=== PATIENT | male | born 1980 | race African-American/Black ===

== ENCOUNTER → 2020-06-30 09:49 | Outpatient (BNVA) | payer SELFPAY | PROVIDERS: Visit Provider Internal Medicine | DX: Z02.79 Encounter for issue of other medical certificate (principal) ==

== ENCOUNTER 2022-09-14 10:42 | Emergency (ER) | payer OTHER, SELFPAY ==
[2022-09-14 10:52] VITALS: BP 144/81; PULSE 62; RESP 16; TEMP 36.6; O2SAT 98; BMI 22.9
--- OUTSIDE RECORDS SUMMARY | 2022-09-14 11:36 | XMS_ITS | Continuity of Care Document ---
Author Name Unknown Organization [facility] Address [address] [place] [address]- Care Team Providers Care Auto Technician Name Role Phone Not on Staff, PCP Primary Care Physician Unavail able Encounter [facility] Date(s): 01/20/20 - 03/04/20 [facility] [address], [place] [address] Attending Physician: Guillermo Mason MD Admitting Physician: Guillermo Mason MD Allergies, Adverse Reactions, Alerts Substance Reaction Severity Status NKA Active Social History Social History Type Response Smoking Status Former smoker, quit more than 30 days ago; Total pack years: 9; Started at age: 12; Stopped at age: 39; entered on: 02/03/20 Sex
--- OUTSIDE RECORDS SUMMARY | 2022-09-14 11:37 | XMS_ITS | Continuity of Care Document ---
Author Name Unknown Organization [facility] Address [address] [place] [address]- Care Team Providers Care Deburrer Strip Name Role Phone Wenceslao Garvey MD Primary Care Physician Encounter [facility] Date(s): 02/04/22 - 03/06/22 [facility] [address] [place] [id number] Attending Physician: Ciera Perry Admitting Physician: Ciera Perry Referring Physician: Ciera Perry Allergies, Adverse Reactions, Alerts No Known Allergies Social History Social History Type Response Smoking Status Former smoker, quit more than 30 days ago; Total pack years: 9; Started at age: 12; Stopped at age: 39; entered on: 02/03/20 Sex Patient Care team information Care Team Personnel Name: Wenceslao Garvey MD Position: S Resident Member Role: PCP Address: Address: [address] [place] [id number]- Care Team Related Persons Name: HARLEY PORTER Address: home [address] [place] [id number]
--- OUTSIDE RECORDS SUMMARY | 2022-09-14 11:37 | XMS_ITS | Continuity of Care Document ---
Author Name Unknown Organization [facility] Address [address] [place] [phone]- Care Team Providers Care Operations Intern Name Role Phone Wenceslao Garvey MD Primary Care Physician Encounter [facility] Date(s): 12/15/21 - 03/06/22 [facility] [address] [place] [id number] Attending Physician: Guillermo Mason MD Admitting Physician: Guillermo Mason MD Allergies, Adverse Reactions, Alerts No Known Allergies Social History Social History Type Response Smoking Status Former smoker, quit more than 30 days ago; Total pack years: 9; Started at age: 12; Stopped at age: 39; entered on: 02/03/20 Sex Patient Care team information Care Team Personnel Name: Wenceslao Garvey MD Position: S Resident Member Role: PCP Address: Address: [address] [place] [address]- Care Team Related Persons Name: HARLEY PORTER Address: home [address] [place] [id number]
--- OUTSIDE RECORDS SUMMARY | 2022-09-14 11:37 | XMS_ITS | Continuity of Care Document ---
Author Name Unknown Organization [facility] Address [address] [place] [address]- Care Team Providers Care Obiee Report Developer Name Role Phone Truong Arana MD Primary Care Physician [phone] Encounter [facility] Date(s): 06/07/20 - 07/07/20 [facility] [address] [place] [id number] Allergies, Adverse Reactions, Alerts Substance Reaction Severity Status NKA Active Social History Social History Type Response Smoking Status Former smoker, quit more than 30 days ago; Total pack years: 9; Started at age: 12; Stopped at age: 39; entered on: 02/03/20 Sex
--- OUTSIDE RECORDS SUMMARY | 2022-09-14 11:37 | XMS_ITS | Continuity of Care Document ---
Author Name Unknown Organization [facility] Address [address] [place] [address]- Care Team Providers Care Signals Collection Technician Name Role Phone Not on Staff, PCP Primary Care Physician Unavail able Encounter [facility] Date(s): 02/17/20 - 03/18/20 [facility] [address] [place], [place] [address] Allergies, Adverse Reactions, Alerts Substance Reaction Severity Status NKA Active Social History Social History Type Response Smoking Status Former smoker, quit more than 30 days ago; Total pack years: 9; Started at age: 12; Stopped at age: 39; entered on: 02/03/20 Sex
--- OUTSIDE RECORDS SUMMARY | 2022-09-14 11:37 | XMS_ITS | Continuity of Care Document ---
Author Name Unknown Organization [facility] Address [address] [place] [address]- Care Team Providers Care Associate Scientist Name Role Phone Not on Staff, PCP Primary Care Physician Unavail able Encounter [facility] Date(s): 02/03/20 - 03/04/20 [facility] [address] [place], [place] [address] Attending Physician: Ciera Perry Admitting Physician: Ciera Perry Referring Physician: Ciera Perry Allergies, Adverse Reactions, Alerts Substance Reaction Severity Status NKA Active Social History Social History Type Response Smoking Status Former smoker, quit more than 30 days ago; Total pack years: 9; Started at age: 12; Stopped at age: 39; entered on: 02/03/20 Sex
--- OUTSIDE RECORDS SUMMARY | 2022-09-14 11:37 | XMS_ITS | Continuity of Care Document ---
Author Name Unknown Organization [facility] ter Address [address] [place] [address]- Care Team Providers Care Anesthesiology Technologist Name Role Phone Not on Staff, PCP Primary Care Physician Unavail able Encounter [facility] Date(s): 02/10/19 - 02/10/[address] [address] [facility] Encounter Diagnosis Acute pain of right shoulder due to trauma(Final) - 02/10/19 Injury of right rotator cuff(Final) - 02/10/19 Discharge Disposition: A-D/C Home Attending Physician: Braulio Briscoe MD Admitting Physician: Braulio Briscoe MD Referring Physician: Not on Staff, Referring MD Allergies, Adverse Reactions, Alerts Substance Reaction Severity Status NKA Active Results Radiology Reports * Exam Date Time Procedure Performing Provider Status 02/10/19 9:29 AM Shoulder Min 2 Views Right Shmuel , Jenna; Auth (Verified) Notes: (Shoulder Min 2 Views Right) Reason For Exam: with Pain;Trauma RESULT: Shoulder Min 2 Views Right Shoulder Min 2 Views Right, 3 views Refer to EMR; Reason: Trauma; with Pain; Clinical Question(s): Fracture; Special Instructions: Thisis a protocol film and radiologist should call any findings to the Charge Nurse; Hx of Present Illness: pt states he fell yesterday and held out his right arm to break the fall pt c o right shoulder pain 6 10 pt states hes able to move right upper extremity but hurts did not take any meds for pain COMPARISON: None. FINDINGS: No fracture or dislocation. No arthritic change of the glenohumeral joint. Normal AC joint and portions of the clavicle included on the exam. No calcification of the rotator cuff. IMPRESSION: Normal. WSN: [id number] Dictated By: Papito Garay MD Dictated Date/Time: 02/10/19 9:45 am Reviewed By: Papito Garay MD Signed By: Papito Garay MD Signed Date/Time: 02/10/19 9:45 am Transcribed By: ELVIN Transcribed Date/Time: 02/10/19 9:45 am Vital Signs Most recent to oldest [Reference Range]: 1 Weight 89.5 kg (02/10/19 8:22 AM) Oxygen Saturation [94-100 %] 98 % (02/10/19 8:22 AM) Pulse Rate [55-90 bpm] 70 bpm (02/10/19 8:22 AM) Blood Pressure [90-138/55-84 mm Hg] 132/ 79mm Hg (02/10/19 8:22 AM) Respiratory Rate [16-30 br/min] 18 br/mi n (02/10/19 8:22 AM) Temperature [96.8-100.4 DegF] 97.6 DegF (02/10/19 8:22 AM) Mode of Delivery (Oxygen) Room air (02/10/19 8:22 AM) Blood pressure sites Arm, left (02/10/19 8:22 AM) Temperature Route Oral (02/10/19 8:22 AM) Dry Weight 89.5 kg (02/10/19 8:22 AM)
--- OUTSIDE RECORDS SUMMARY | 2022-09-14 11:37 | XMS_ITS | Continuity of Care Document ---
Author Name Unknown Organization [facility] ter Address [address] [place] [id number]- Care Team Providers Care Hostess Name Role Phone Not on Staff, PCP Primary Care Physician Unavail able [facility]counter [facility] Date(s): 09/07/19 - 09/07/[address] [address] [facility] Discharge Disposition: A-D/C Walkout Attending Physician: Not on Staff, Attending MD Admitting Physician: Not on Staff, Admitting MD Referring Physician: Not on Staff, Referring MD Allergies, Adverse Reactions, Alerts Substance Reaction Severity Status NKA Active Vital Signs Most recent to oldest [Reference Range]: 1 Height 186 cm (09/07/19 11:54 AM) Weight 88.5 kg (09/07/19 11:54 AM) Oxygen Saturation [94-100 %] 98 % (09/07/19 11:54 AM) Pulse Rate [55-90 bpm] 62 bpm (09/07/19 11:54 AM) Body Mass Index [18.5-24.99] 25.58 *H* (09/07/19 11:54 AM) Blood Pressure [90-138/55-84 mm Hg] 119/ 69mm Hg (09/07/19 11:54 AM) Respiratory Rate [16-30 br/min] 18 br/mi n (09/07/19 11:54 AM) Temperature [96.8-100.4 DegF] 98.6 DegF (09/07/19 11:54 AM) Mode of Delivery (Oxygen) Room air (09/07/19 11:54 AM) Blood pressure sites Arm, left (09/07/19 11:54 AM) Temperature Route Oral (09/07/19 11:54 AM) Dry Weight 88.5 kg (09/07/19 11:54 AM) Weight Obtained Via Patient/family state d (09/07/19 11:54 AM) Dry Weight Obtained Via Patient/family s tated (09/07/19 11:54 AM)
--- OUTSIDE RECORDS SUMMARY | 2022-09-14 11:37 | XMS_ITS | Continuity of Care Document ---
Author Name Unknown Organization [facility] Address [address] [place] [address]- Care Team Providers Care Data Virtualization Consultant Name Role Phone Truong Arana MD Primary Care Physician Encounter [facility] Date(s): 07/23/20 - 09/07/20 [facility] [address] [place], [place] [address] Attending Physician: Not on Staff, Attending MD Allergies, Adverse Reactions, Alerts Substance Reaction Severity Status NKA Active Social History Social History Type Response Smoking Status Former smoker, quit more than 30 days ago; Total pack years: 9; Started at age: 12; Stopped at age: 39; entered on: 02/03/20 Sex
--- NOTE | 2022-09-14 13:17 | ED.DENTAL ---
HPI - Dental/Oral General Chief complaint: Dental/Oral Stated complaint: tooth pain Time Seen by Provider: 09/14/22 12:21 Source: patient Mode of arrival: ambulatory Limitations: no limitations History of Present Illness HPI Narrative: Patient is a 42-year-old male presents emergency department for evaluation of dental pain. Reports that his right lower wisdom to has been infected for some time recently fractured further. He has a foul taste to his mouth, and his gums are red. Denies any you pain, neck pain, chest pain, shortness of breath, fevers, chills. He currently does not have a dental provider as he does not have insurance. Related Data Previous Rx's Medication Instructions Recorded amoxicillin 875 mg-potassium 1 tab PO BID #13 tabs 09/14/22 clavulanate 125 mg tablet Allergies Allergy/AdvReac Type Severity Reaction Status Date / Time No Known Allergies Allergy Verified 09/14/22 10:51 Review of Systems Review of Systems: Constitutional : No Fever, No Chills, No changes in PO intake, No difficulty speaking,? no recent dental procedure, no heat or cold intolerance while eating, no recent face trauma, ENT/Mouth : No swallowing difficulty, no change in voice, No jaw pain, No facial swelling, no drooling, no trismus, no bleeding, no throat swelling, no lacerations, no tongue swelling, gum swelling, Eyes: No Eye Pain, No periorbital Swelling Cardiovascular : No Chest Pain, No SOB Respiratory : No Cough, No Sputum, No Wheezing, No Smoke Exposure, No Dyspnea Gastrointestinal : No Nausea, No Vomiting, No Diarrhea Genitourinary : No Dysuria Musculoskeletal : No Myalgias Skin : No rash, no facial swelling or redness, Neuro : No Weakness, No Numbness, No Headache Yes all other systems are reviewed and are negative [facility] Past Medical History Attestation statement: The following information was validated with the patient. Source: old records reviewed Social History Social History Advance Directives: No Advance Directives Information Provided: Yes Physical Exam Vital Signs: Vital Signs: Last Vital Signs Temp 97.8 F 09/14/22 10:52 Pulse 62 09/14/22 10:52 Resp 16 09/14/22 10:52 BP 144/81 H 09/14/22 10:52 Pulse Ox 98 09/14/22 10:52 O2 Del Method Room Air 09/14/22 10:52 BMI result Body Mass Index 22.9 Appearance: Alert. Oriented X3. No acute distress. Head: Normal external exam. Normocephalic. Atraumatic. Eyes: PERRLA. EOMI. Conjunctiva and sclera normal. Eyelids normal. ENT: EAC normal. TM's Normal. Pharynx normal. Uvula midline. Moist mucous membranes.? ?No trismus noted.? No drooling noted.? No muffled voice noted. Dentition:? Patient with poor dentition throughout with multiple old fractured teeth with multiple dental caries.? Gingival within normal limits.? No fluctuance.? Neck: Normal inspection. Neck supple. FROM. No adenopathy. Thyroid Normal. No meningeal signs. No neck mass noted.? Trachea midline. CVS: Normal heart rate and rhythm. Heart sound normal. No murmurs noted. Pulses normal throughout. Respiratory: No respiratory distress. Painless inspiration. Breath sounds normal. No wheezes/rales/rhonchi noted. Chest nontender. ?No accessory muscle usage noted or decreased air movement noted. Back:? Full range of motion noted. Skin: Skin warm and dry.? Normal skin color.? Normal skin turgor. No rashes/lesions/lacerations noted. Extremities: Extremities exhibit normal range of motion.? Extremities nontender. Neuro: Oriented X 3.? No motor deficit.? No sensory deficit.? Reflexes normal. Medical Decision Making Medical Decision Making MDM Narrative: Patient is a 42-year-old male presenting to emergency department for evaluation of dental pain as per HPI. He is overall well-appearing, nontoxic, afebrile without tachycardia. Examination is concerning for dental infection, no evidence of dental abscess or peritonsillar abscess at this time. No salivary duct obstruction is noted. Patient with multiple caries and dental fracture present. Offered analgesics in the emergency department however he declines. Discussed plan of care for discharge prescription for Augmentin, patient received 1st dose while in the emergency department. Advised outpatient follow-up with dental provider provided information for local dental clinics in addition to obtaining Upfront Chromatography. Reviewed worrisome signs and symptoms that would warrant re-evaluation in the emergency department. All questions answered. Stable for discharge. Differential Diagnosis Differential Diagnoses: The differential diagnosis associated with the presentation includes ( As noted above) Prescription Management I considered prescription management with: Antibiotic Social Determinants Patient?s care significantly limited by Social Determinants of Health including: Other Social Determinant of Health ( lack of health insurance) Discharge Plan Discharge Clinical Impression: Fracture of tooth, Dental infection Patient Disposition: Home, Self-Care Instructions: Toothache (ED) Additional Instructions: You received the first dose of antibiotic while in the emergency department, I sent a prescription for additional dosages to your pharmacy. Please be sure that you complete the entire course of this antibiotic. You can take ibuprofen 200 mg, 3 tablets (600mg) every 6-8 hours as needed for pain, in addition to Tylenol 500 mg, 2 tablets (1,000mg) every 4-6 hours as needed for pain, but not to exceed 3 doses daily (3,000mg).? You have been provided with contact information for local dental offices/Clinics, please contact their office to arrange for follow-up in addition to obtaining health insurance. You may return back to emergency department any new or worsening symptoms or concerns. Prescriptions: New amoxicillin-pot clavulanate 875-125 mg tablet 1 tab PO BID Qty: 13 0RF Referrals: Physician,None [Primary Care Provider] -
[2022-09-14] MEDS: Amoxicillin/Potassium Clav 875 MG TABLET PO (13:30)
== END 2022-09-14 13:58 | disposition home or self-care (01) ==
PROVIDERS: Emergency Provider Student in an Organized Health Care Education/Training Program
DX: K08.539 Fractured dental restorative material, unspecified (principal); K04.7 Periapical abscess without sinus; K08.89 Other specified disorders of teeth and supporting structures
CPT/HCPCS: 99282; 99283

== ENCOUNTER 2022-10-13 15:44 | Emergency (ER) | payer OTHER, SELFPAY ==
[2022-10-13 16:03] VITALS: BP 122/79; PULSE 72; RESP 18; TEMP 36.2; O2SAT 100; BMI 23.4
--- NOTE | 2022-10-13 16:12 | ED.GENADULT ---
HPI - General Adult General Chief complaint: Dental/Oral Stated complaint: dental pain/headache Time Seen by Provider: 10/13/22 16:08 Source: patient Mode of arrival: ambulatory Limitations: no limitations History of Present Illness HPI narrative: [age] old male presents to ED for right upper molar pain due to prior cracked tooth in the past. Patient not been able to follow-up with dentist due to insurance [place] health issues. Patient denies any facial swelling, drooling, change in voice, chest pain, trouble swallowing, shortness of breath or any recent trauma to the head neck or face. Related Data Previous Rx's Medication Instructions Recorded amoxicillin 875 mg-potassium 1 tab PO BID #13 tabs 09/14/22 clavulanate 125 mg tablet amoxicillin 875 mg-potassium 1 tab PO Q12H 10 days #20 tabs 10/13/22 clavulanate 125 mg tablet naproxen 500 mg tablet 500 mg PO BID PRN pain 7 days #14 10/13/22 tabs Allergies Allergy/AdvReac Type Severity Reaction Status Date / Time No Known Allergies Allergy Verified 10/13/22 16:03 Review of Systems Review of Systems: Right-sided facial pain Yes all other systems are reviewed and are negative PMFSH Social History Social History Advance Directives: No Advance Directives Information Provided: Yes Physical Exam ED Vital Signs: Vital Signs - 24 hr 10/13/22 16:03 Temperature 97.2 F Pulse Rate 72 Respiratory Rate 18 Blood Pressure 122/79 Pulse Oximetry 100 Oxygen Delivery Method Room Air BMI result Body Mass Index 23.4 Const General: cooperative, healthy appearing, comfortable, no acute distress, well developed, alert, awake and Physically active; No acute distress Orientation/consciousness: oriented to person, oriented to place, oriented to time and patient oriented x3 HENMT Other: negative for any facial swelling Head: Yes normal to inspection, Yes No palpable skull fracture present, Yes normocephalic, Yes atraumatic and No abrasion Ears: hearing grossly normal bilaterally, external ears normal, TM's normal bilaterally, TM normal on the right, TM normal on the left, EAC's normal, mastoids normal and no periauricular adenopathy Teeth image: 1. tenderness on palpation. Negative for pus collection. Negative trismus 2. tenderness on palpation. Negative for pus collection. Negative trismus Throat: Yes posterior oropharynx normal, Yes tonsils normal and Yes uvula midline Eyes General: appearance normal, both eyes and all related structures Neck Neck: Yes normal visual inspection, Yes full ROM, Yes no lymphadenopathy, Yes no meningeal signs, Yes trachea midline, Yes supple, No anterior neck swelling and No tender Chest Chest palpation & inspection: normal inspection of the chest and normal palpation of entire chest wall Resp Effort & Inspection: normal respiratory effort and able to speak in complete sentences Auscultation: clear to auscultation bilaterally Cardio Jugular venous distension: no JVD Heart sounds: S1 normal heart sound present and S2 normal heart sound present GI Inspection: Yes normal to inspection and No abdominal wall ecchymosis Palpation (GI): Soft to palpation, not firm, nontender, no guarding and not rigid General: No CVA tenderness and Yes no CVA tenderness Back/Spine/Pelvis Back: no CVA tenderness, No CVA tenderness and No back tenderness Skin General skin exam: no rashes or lesions noted, elasticity normal and turgor normal Neuro General: oriented to person, oriented to place, oriented to time, patient oriented x3, gait normal, tone normal, moves all extremities, Normal light touch and pain sensation, no meningeal signs, no focal motor deficits, CN's II-XI intact bilaterally and normal sensation to monofilament Extrem General: Yes normal to inspection and Yes full ROM Psych Appearance: grossly normal, well kempt and not disheveled Course Course Course Narrative: RME: 42 yold male presets to the ED for right sided dental pain. no swelling Medical Decision Making Medical Decision Making MDM Narrative: 42 old male presents to ED for right-sided dental pain. Patient has history of cracked tooth that needs to be extracted and taking care by tented the patient has insurance issues. Patient denies any facial swelling, fever, chills, sore throat, trouble swallowing, drooling, any recent trauma to the head face or neck. Patient usually antibiotics and pain meds help relieve symptoms. Patient on any distress. Presently not suspecting any Lencho's angina, retropharyngeal abscess, or respiratory distress. Differential Diagnosis Differential Diagnoses: The differential diagnosis associated with the presentation includes ( Dental abscess, dental fracture, Lencho angina, retropharyngeal abscess, respiratory distress, otitis media, otitis externa, brain bleed, cervical spine fracture, meningitis) External Record Review External record reviewed: Other (Prior ED visist) Tests considered The following testing was considered but not selected: CT sacn Prescription Management I considered prescription management with: Pain Medication and Antibiotic Social Determinants [place] [facility]. Registration helped patient with this issue Discharge Plan Discharge Clinical Impression: Toothache Patient Disposition: Home, Self-Care Instructions: Toothache (ED) Additional Instructions: Retrun to the ED immediately for any facial swelling, redness, drooling, change in voice, dental pain, fever, chills, or any other concerning symptoms. Please follow up with PCP and dentists. Prescriptions: New amoxicillin-pot clavulanate 875-125 mg tablet 1 tab PO Q12H 10 Days Qty: 20 0RF naproxen 500 mg tablet 500 mg PO BID PRN (Reason: pain) 7 Days Qty: 14 0RF No Action amoxicillin-pot clavulanate 875-125 mg tablet 1 tab PO BID Qty: 13 0RF Interventions: ED Discharge Assessment Last Done: 10/13/22 16:22 Discharge Date/Time: 10/13/22 16:23 Print Language: Haitian
== END 2022-10-13 16:23 | disposition home or self-care (01) ==
PROVIDERS: Emergency Provider Internal Medicine
DX: K08.89 Other specified disorders of teeth and supporting structures (principal); Z79.899 Other long term (current) drug therapy
CPT/HCPCS: 99282

== ENCOUNTER 2023-04-28 03:40 | Emergency (ER) | payer OTHER, SELFPAY ==
--- NOTE | ~2023-04-28 | XR_ITS ---
EXAMINATION: XR RIBS, RIGHT CLINICAL INFORMATION: Pain. COMPARISON: 04/02/2009. TECHNIQUE: 3 views of the right ribs were obtained. FINDINGS: Lungs are clear. No consolidation, pneumothorax, or pleural effusion. The cardiomediastinal silhouette and pulmonary vasculature are normal. There is a minimally displaced anterior right 10th rib fracture. The remaining visualized osseous structures are unremarkable. XR/XR ribs RT min 3V w CXR1V IMPRESSION: 1. Minimally displaced anterior right 10th rib fracture. 2. No acute cardiopulmonary findings.
[2023-04-28 03:53] VITALS: BP 135/70; PULSE 63; RESP 16; TEMP 36.7; O2SAT 96; BMI 23.9
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
[2023-04-28] MEDS: Ibuprofen 400 MG TABLET PO (04:53)
== END 2023-04-28 06:24 | disposition home or self-care (01) ==
PROVIDERS: Emergency Provider Emergency Medicine Emergency Medical Services
DX: S22.31XA Fracture of one rib, right side, initial encounter for closed fracture (principal); Y04.0XXA Assault by unarmed brawl or fight, initial encounter; Y93.9 Activity, unspecified; Y92.9 Unspecified place or not applicable; Y99.9 Unspecified external cause status
CPT/HCPCS: 71101; 99283; 99284

== ENCOUNTER 2023-06-14 00:24 | Emergency (ER) | payer SELFPAY ==
--- NOTE | ~2023-06-14 | CT_ITS ---
EXAMINATION: CT ABDOMEN AND PELVIS WITHOUT CONTRAST CLINICAL INFORMATION: Right flank pain. COMPARISON: None available. TECHNIQUE: Multidetector volumetric imaging was performed from the superior aspect of the liver through the pubic symphysis. Sagittal and coronal reformatted images were obtained on the technologist's workstation. This CT examination was performed using dose optimization techniques as appropriate, variously including the following: *Automated exposure control *Adjustment of mA and/or kV according to patient size (this includes techniques or standardized protocols for targeted exams where dose is matched to indication/reason for exam; i.e. extremities or head) *Use of iterative reconstruction technique DLP: 537 mGy-cm FINDINGS: LUNG BASES: The visualized lung bases are unremarkable. LIVER, GALLBLADDER, AND BILIARY TREE: There is a subcentimeter hypodensity inferior right lobe of the liver too small to characterize but probably a small cyst. The gallbladder is unremarkable with no evidence of radiopaque gallstones, gallbladder wall thickening, or obvious pericholecystic inflammatory changes. PANCREAS: Unremarkable. SPLEEN: Unremarkable. ADRENAL GLANDS: Unremarkable. KIDNEYS AND URETERS: The kidneys are normal in size, shape, and attenuation. No hydronephrosis, hydroureter, or calculi seen. No perinephric stranding. BLADDER: Unremarkable. GASTROINTESTINAL TRACT: There are diverticula of the descending and the sigmoid colon. There is mild infiltrative change along a single diverticula of the proximal sigmoid colon. The appendix is visualized and is within normal limits ABDOMINAL WALL: No significant hernia is appreciated. LYMPH NODES: Normal. VASCULAR: Unremarkable. PELVIC VISCERA: Unremarkable. OSSEOUS STRUCTURES: T12 compression fracture which appears to be chronic. CT/CT abdomen pelvis wo IV con IMPRESSION: 1. Diverticula of the descending and the sigmoid colon with mild infiltrative change along a single diverticulum of the proximal sigmoid colon towards the left abdomen. Suspect mild/early acute diverticulitis. Correlation needed as this is somewhat subtle finding and clinical history provided was of right-sided pain. 2. No evidence of renal calculi or obstructive uropathy. 3. T12 compression fracture which appears to be chronic. Fleischner guidelines were followed.
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
[2023-06-14 00:37] VITALS: BP 140/85; PULSE 78; RESP 22; TEMP 36.4; BMI 23.6
[2023-06-14] MEDS: Acetaminophen 325 MG TABLET 975 MG PO (00:58)
[2023-06-14] MEDS: Ketorolac Tromethamine 15 MG/ML VIAL IM (00:59)
[2023-06-14 01:05] VITALS: PULSE 62; RESP 16; O2SAT 99
[2023-06-14 01:22] LABS: MANUAL DIFF FLAG NO
[2023-06-14 01:24] LABS: Basophils Absolute Auto 0.1 X10*3/uL (0.0-0.2); Basophils Percent Auto 0.4 % (0-2); Eosinophils Absolute Auto 0.1 X10*3/uL (0.0-0.4); Eosinophils Percent Auto 0.8 % (0-4); Hematocrit 40.4 % (42.0-52.0); Hemoglobin 14.5 g/dl (14.0-18.0); Imm Gran Abs Auto 0.07 X10*3/uL (0.00-0.03); Imm Gran Pct Auto 0.4 % (0.0-0.4); Lymphocytes Percent Auto 12.6 % (20-40); Mean Corpuscular HGB Conc 35.9 g/dl (31.0-36.0); Mean Corpuscular Volume 89.2 fL (80.0-98.0); Mean Platelet Volume 11.4 fL (9.4-12.4); Monocytes Percent Auto 6.1 % (2-11); Neutrophils Absolute Auto 12.5 x10*3/uL (2.0-8.3); Neutrophils Percent Auto 79.7 % (45-73); Platelet Count 173 X10*3/uL (160-400); Red Blood Count 4.53 X10*6/uL (4.60-5.80); Red Cell Distribution Width 12.4 % (11.0-16.0); White Blood Count 15.7 X10*3/uL (4.8-10.8)
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
[2023-06-14] MEDS: LORazepam 2 MG/ML VIAL 1 MG IVPUSH (01:25)
[2023-06-14] MEDS: droPERidol 5 MG/2 ML VIAL 1.25 MG IVPUSH (01:26)
[2023-06-14] MEDS: 0.9 % Sodium Chloride 1,000 ML 999 ML IV (01:26)
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
[2023-06-14 01:42] LABS: Alanine Aminotransferase 9 U/L (0-40); Albumin Level 4.2 g/dL (3.5-5.0); Alkaline Phosphatase 70 U/L (39-117); Anion Gap 12 (12-20); Aspartate Amino Transferase 15 U/L (5-37); Bilirubin Direct 0.1 mg/dL (0.0-0.5); Bilirubin Total 0.3 mg/dL (0.0-1.0); Blood Urea Nitrogen 11 mg/dL (9-16); Calcium 8.9 mg/dL (8.4-10.2); Carbon Dioxide 24 mmol/L (22-29); Chloride 109 mmol/L (96-108); Creatinine Clr Calc Pharmacy 144.2; Estimated Glomerular Filt Rate > 60; Glucose Random 118 mg/dL (60-115); Lipase 13 U/L (8-78); Magnesium 1.9 mg/dL (1.6-2.6); Sodium 142 mmol/L (135-145); Total Protein 6.6 g/dL (6.5-8.0)
[2023-06-14] MEDS: Amoxicillin/Potassium Clav 875 MG TABLET PO (06:53)
[2023-06-14] MEDS: Potassium Chloride Packet 20 MEQ PACKET 40 MEQ PO (06:54)
[2023-06-14 07:00] VITALS: BP 140/85; PULSE 90; RESP 14; TEMP 36.4
== END 2023-06-14 07:05 | disposition home or self-care (01) ==
PROVIDERS: Emergency Provider Emergency Medicine
DX: K57.32 Diverticulitis of large intestine without perforation or abscess without bleeding (principal); R07.81 Pleurodynia; E87.6 Hypokalemia; F12.10 Cannabis abuse, uncomplicated; R10.31 Right lower quadrant pain; R11.0 Nausea; Z79.899 Other long term (current) drug therapy
CPT/HCPCS: 36415; 71046; 74176; 80048; 80076; 83690; 83735; 85025; 96361; 96372; 96374; 96375; 99285; J1790; J1885; J2060